=== PATIENT | male | born 1950 | race Caucasian/White ===

== ENCOUNTER → 2017-08-16 | Outpatient (CLI) | payer OTHER ==
[~2017-08-16] MED LIST: ACET500T68 PO; AMLO5TAB2 PO; ASPI-482 PO; DIPH25CA58 PO; DOXY25TA42 PO; METH4TAB7 PO; NAPR500T4 PO; SIMV20TA3 PO; TRAM50TA PO
--- NOTE | 2017-08-16 12:11 | CARD ---
APPROVED REPORT EXAM: Two-dimensional and M-mode echocardiogram with Doppler and color Doppler. Other Information Quality : Fair INDICATION Dyspnea Cardiac Disease: CAD Chest Pain 2D DIMENSIONS RVDd2.4 (2.9-3.5cm)Left Atrium(2D)3.9 (1.6-4.0cm) IVSd1.0 (0.7-1.1cm)Aortic Root(2D)3.4 (2.0-3.7cm) LVDd5.6 (3.9-5.9cm)LVOT Diameter2.2 (1.8-2.4cm) PWd1.2 (0.7-1.1cm)LVDs3.3 (2.5-4.0cm) FS (%) 30.0 %SV108.7 ml LVEF(%)60.0 (>50%) Aortic Valve AoV Peak Andre.135.6cm/sAoV VTI23.8cm AO Peak GR.7.4mmHgLVOT Peak Andre.124.3cm/s AO Mean GR.4mmHgAVA (VMAX)3.45cm2 STEVIE (VTI)4.65ya5KX P 1/2 Nqzr070jh Mitral Valve MV E Motpgdcz28.3cm/sMV DECEL OLGE404gw MV A Wgjzjtza397.3cm/sE/A Ratio0.8 Tricuspid Valve TR P. Coqnzrny752ba/sRAP JOLWAIMC9zsOf TR Peak Gr.94ezGeGHDB27ejFa Pulmonary Vein S1 Zgpdcacm43.8cm/sD2 Qyswqmwm70.2cm/s LEFT VENTRICLE The left ventricle is normal size. There is mild asymmetric posterior wall hypertrophy. The left vent ricular systolic function is normal and the ejection fraction is within normal range. The Ejection Fr action is 55-60%. There is normal LV segmental wall motion. Transmitral Doppler flow pattern is Grade I-abnormal relaxation pattern. RIGHT VENTRICLE The right ventricle is normal size. The right ventricular systolic function is normal. ATRIA The left atrium size is normal. The right atrium size is normal. The interatrial septum is intact wit h no evidence for an atrial septal defect or patent foramen ovale as noted on 2-D or Doppler imaging. AORTIC VALVE The aortic valve is calcified but opens well. Doppler and Color Flow revealed mild aortic regurgitati on. There is no significant aortic valvular stenosis. MITRAL VALVE The mitral valve is calcified but opens well. There is no evidence of mitral valve prolapse. There is no mitral valve stenosis. Doppler and Color Flow revealed trace mitral valve regurgitation. TRICUSPID VALVE The tricuspid valve is normal in structure and function. Doppler and Color Flow revealed trace tricus pid regurgitation. The PA pressure was estimated at 30 mmHg. There is no tricuspid valve stenosis. PULMONIC VALVE The pulmonic valve is not well visualized bue appears to be functioning normally by Doppler interroga tion. Doppler and Color Flow revealed no pulmonic valvular regurgitation. There is no pulmonic valvul ar stenosis. GREAT VESSELS The aortic root is normal in size. The ascending aorta is not well seen. The IVC was not visualized. PERICARDIAL EFFUSION There is no evidence of significant pericardial effusion. Critical Notification Critical Value: No <Conclusion> The left ventricle is normal size. The left ventricular systolic function is normal and the ejection fraction is within normal range. The Ejection Fraction is 55-60%. There is mild asymmetric posterior wall hypertrophy. There is no significant aortic valvular stenosis. Doppler and Color Flow revealed mild aortic regurgitation. Doppler and Color Flow revealed trace mitral valve regurgitation. Doppler and Color Flow revealed trace tricuspid regurgitation. The PA pressure was estimated at 30 mmHg.
[2017-08-17] MEDS: REGADENOSON 0.4 MG/5 ML DISP.SYRIN. IV ONE (09:36)
--- NOTE | 2017-08-17 12:09 | RAD ---
APPROVED REPORT Test Type: Pharmacological Stress Nurse/Tech: SUKHI Castaneda Test Indications: chest pain Cardiac History: cardiomyopathy, valve, HTN Medications: See EMR Medical History: sleep apnea, See EMR Resting ECG: SR Resting Heart Rate: 70 bpm Resting Blood Pressure: 126/77mmHg Pretest Chest Pain: No chest pain Nurse/Tech Notes S1,S2, Lungs CTA, denies CP or SOA Consent: The procedure was explained to the patient in lay terms. Informed consent was witnessed. Steven eout was entered into [id number]. History and Stress Test performed by SUKHI Castaneda Pharm. Details Pharmacologic stress testing was performed using 0.4mg per 5ml of regadenoson given intravenously ove r 7-10 seconds. Stress Symptoms No chest pain or symptoms. POST EXERCISE Reason for Termination: Infusion complete Max HR: 103 bpm Max Blood Pressure: 158/78mmHg Blood Pressure response to exercise: Normal blood pressure response during stress. Heart Rate response to exercise: WNL Chest Pain: No. Arrhythmia: No. ST Change: No. INTERPRETATION Stress EKG Conclusion: Baseline EKG showed sinus rhythm. No ischemic changes at peak stress. No arr hythmias. Imaging Protocol IMAGE PROTOCOL: Rest Tc-99m/stress Tc-99m 2 days Rest: Stress: Viability: Radiopharm.Tc99m HttavbvprRm13g Sestamibi Dose31.3mCi 34.1mCi Duration 12min. 12min. Img Date 08/17/2017 08/17/2017 Inj-Img Aqcc62nkg. 60min. Rest Admin Site:IV - Right WristAdministrator:INDER Ling Stress Admin Site: IV - Right WristAdministrator: Dina Limon, RT (R)(N) STRESS DATA End Diast. Vol.109.0mlAv. Heart Rate68.0bpm End Syst. Vol.35.0mlCO Index BSA0.0L/min Myocardial Zyqv948.0gEject. Xbzswhcf35.0% Stress Rates Pk. Fill Rate2.56EDV/secLVtime Pk. Fill 195.90msec Pk. Empty Rate3.96ESV/secLVtime Pk. Epbji835.74msec 11/17 Pk. Fill0.95EDV/sec Stress Scores Regional WT0.00Summed WT5.00 Regional WM0.00Summed WM0.00 Study quality was good. Left Ventricular size was Normal at Rest and Stress. Lung uptake was Normal. Left Ventricular ejection fraction is 68%. The rest and stress images show normal perfusion, normal contraction and thickening. LV Perf. Quant 17 Seg. SSS6.00 17 Seg. SRS6.00 17 Seg. SDS1.00 Stress Defect Extent (% LAD)0.00Rest Defect Extent (% LAD)0.00Rev. Defect Extent (% LAD)0.00 Stress Defect Extent (% LCX) 52.50Rest Defect Extent (% LCX)27.50Rev. Defect Extent (% LCX)0.00 Stress Defect Extent (% RCA)0.00Rest Defect Extent (% RCA)0.00Rev. Defect Extent (% RCA)0.00 Stress Defect Extent (% NELLY)11.70Rest Defect Extent (% NELLY)7.60Rev. Defect Extent (% NELLY)0.00 Conclusion 1. Regadenoson cardioisotope stress test did not show any evidence of ischemia or infarct. 2. Normal left ventricular systolic function with ejection fraction calculated at 68%. 3. Low risk for cardiac events.
== END | disposition home or self-care (01) ==
LOC: NM 09:09
PROVIDERS: ATTEND Internal Medicine Cardiovascular Disease
DX: I08.2 Rheumatic disorders of both aortic and tricuspid valves (principal); I25.10 Atherosclerotic heart disease of native coronary artery without angina pectoris; J45.909 Unspecified asthma, uncomplicated; I10 Essential (primary) hypertension; G47.30 Sleep apnea, unspecified; I31.3 Pericardial effusion (noninflammatory); Z79.01 Long term (current) use of anticoagulants; I49.5 Sick sinus syndrome
CPT/HCPCS: 78452; 93306; 96374; 96375; A9500; 93017; 96376; J2785

== ENCOUNTER → 2017-12-02 | Day surgery (SDC) | payer OTHER ==
[~2017-12-02] MED LIST changes: -ACET500T68 PO; -AMLO5TAB2 PO; -ASPI-482 PO; -DIPH25CA58 PO; -DOXY25TA42 PO; +HYDROmorphone 2 MG/ML VIAL IV; +LIDOCAINE 1% PF 2 ML VIAL. ID; +LIDOCAINE 2% PF Vial for OR 5 ML VIAL.; -METH4TAB7 PO; +MORPHINE SULFATE 2 MG/ML DISP.SYRIN. IV; -NAPR500T4 PO; +ONDANSETRON PF 4 MG/2 ML VIAL. IV; +PROCHLORPERAZINE 10 MG/2 ML VIAL. IV; +PROPOFOL 40 ML IV; -SIMV20TA3 PO; -TRAM50TA PO; +fentaNYL PF VIAL 100 MCG/2 ML VIAL IV
[2017-12-02] MEDS: IV RINGERS,LACTATED 1000ML 1,000 ML IV (10:35)
== END | disposition home or self-care (01) ==
LOC: ENDOS 10:01
DX: Z12.11 Encounter for screening for malignant neoplasm of colon (principal); K57.30 Diverticulosis of large intestine without perforation or abscess without bleeding; K64.0 First degree hemorrhoids; K29.70 Gastritis, unspecified, without bleeding; K21.0 Gastro-esophageal reflux disease with esophagitis
CPT/HCPCS: 43239; 88305; 88342; J2704

== ENCOUNTER → 2017-12-22 | Outpatient (CLI) | payer OTHER | END | disposition home or self-care (01) | LOC: KCIC 10:40 | DX: R91.8 Other nonspecific abnormal finding of lung field (principal); I51.7 Cardiomegaly | CPT/HCPCS: 71046 ==

== ENCOUNTER → 2018-01-12 | Outpatient (CLI) | payer OTHER ==
[2018-01-12] MEDS: IOHEXOL 240 MG/ML 50ML VIAL. PO (09:15)
[2018-01-12] MEDS: IOHEXOL 300 MG/ML 100ML VIAL. IV (09:47)
[2018-01-12 10:25] LABS: ISTAT CREATININE 0.8 mg/dL (0.7-1.3)
== END | disposition home or self-care (01) ==
LOC: KCIC CT 08:34
DX: K57.30 Diverticulosis of large intestine without perforation or abscess without bleeding (principal); K42.9 Umbilical hernia without obstruction or gangrene; N28.1 Cyst of kidney, acquired; K76.9 Liver disease, unspecified; M16.11 Unilateral primary osteoarthritis, right hip; M41.86 Other forms of scoliosis, lumbar region; I25.10 Atherosclerotic heart disease of native coronary artery without angina pectoris; J98.11 Atelectasis; Z98.890 Other specified postprocedural states
CPT/HCPCS: 74177; 82565; Q9966; Q9967

== ENCOUNTER → 2018-09-05 | Outpatient (CLI) | payer OTHER ==
[2017-12-02 11:27] VITALS: BP 124/55
[~2018-09-05] MED LIST changes: +ACET500T68 PO; +AMLO5TAB7 PO; +ASPI-482 PO; +DIPH25CA58 PO; +DOXY25TA42 PO; +FURO20TA3 PO; -HYDROmorphone 2 MG/ML VIAL IV; -LIDOCAINE 1% PF 2 ML VIAL. ID; -LIDOCAINE 2% PF Vial for OR 5 ML VIAL.; +METH4TAB7 PO; -MORPHINE SULFATE 2 MG/ML DISP.SYRIN. IV; +NAPR-514 PO; -ONDANSETRON PF 4 MG/2 ML VIAL. IV; +POTA10TA12 PO; -PROCHLORPERAZINE 10 MG/2 ML VIAL. IV; -PROPOFOL 40 ML IV; +RIVA10TA PO; +SIMV20TA3 PO; +TRAM50TA PO; -fentaNYL PF VIAL 100 MCG/2 ML VIAL IV
--- NOTE | 2018-09-05 15:31 | RAD ---
PA and lateral chest x-ray compared to similar examination dated December 22, 2017 for joint rehabilitation, preop, history of hypertension, total hip surgery. FINDINGS: There is redemonstration of marked elevation of the left hemidiaphragm. Lungs are clear. Heart size within normal limits. No significant soft tissue or osseous abnormality is are seen. IMPRESSION: 1. Marked elevation of left hemidiaphragm, stable. Electronically signed by: Jose Munoz MD (09/05/2018 3:27 PM) [facility]
== END | disposition home or self-care (01) ==
LOC: SURGPAT 13:44
PROVIDERS: ATTEND Orthopaedic Surgery
DX: Z01.818 Encounter for other preprocedural examination (principal); M16.11 Unilateral primary osteoarthritis, right hip; I10 Essential (primary) hypertension; J98.6 Disorders of diaphragm
CPT/HCPCS: 71046; 87641

== ENCOUNTER → 2018-09-13 | Outpatient (CLI) | payer OTHER ==
[2017-12-02 11:27] VITALS: BP 124/55
--- NOTE | 2018-09-13 12:27 | CARD ---
MR#: [id number] Date of Study: 09/13/2018 Ordering Physician: MAURILIO RAMIREZ, Referring Physician: MAURILIO RAMIREZ, Tech: Felicita Rosa APPROVED REPORT EXAM: Two-dimensional and M-mode echocardiogram with Doppler and color Doppler. Other Information Quality : FairHR: 74bpm Rhythm : NSR INDICATION Pre-Op RISK FACTORS Hypertension 2D DIMENSIONS Left Atrium(2D)3.0 (1.6-4.0cm)IVSd1.1 (0.7-1.1cm) Aortic Root(2D)4.0 (2.0-3.7cm)LVDd5.5 (3.9-5.9cm) LVOT Diameter2.6 (1.8-2.4cm)PWd1.2 (0.7-1.1cm) LVDs2.7 (2.5-4.0cm)FS (%) 52.0 % SV123.1 ml Aortic Valve AoV Peak Andre.110.0cm/sAoV VTI25.4cm AO Peak GR.4.8mmHgLVOT Peak Andre.88.0cm/s LVOT VTI 22.45cmAO Mean GR.3mmHg STEVIE (VMAX)3.67bk8EVQ (VTI)4.71cm2 AI P 1/2 Xbej894mt Mitral Valve MV E Nuwdwwuq97.7cm/sMV DECEL CCGW735cw MV A Sbbxfkhr30.2cm/sMV ISD78ry E/A Ratio0.7MVA (PHT)2.59cm2 TDI E/Lateral E'4.9E/Medial E'8.2 Pulmonary Valve PV Peak Jyvbrbnq082.9cm/sPV Peak Grad.7mmHg Tricuspid Valve TR P. Soxtsqhy741cq/sRAP TGXJOTYX5nhUa TR Peak Gr.54prGfKEBT63qtJb Pulmonary Vein S1 Krepzhdo11.8cm/sD2 Xpmrexel73.6cm/s PVa xiqanhrk749qmad LEFT VENTRICLE The left ventricle is normal size. There is mild concentric left ventricular hypertrophy. The left ve ntricular systolic function is normal. The ejection fraction is 60-65%. There is normal LV segmental wall motion. Transmitral Doppler flow pattern is Grade I-abnormal relaxation pattern. RIGHT VENTRICLE The right ventricle is normal size. There is normal right ventricular wall thickness. The right ventr icular systolic function is normal. ATRIA The left atrium size is normal. The right atrium size is normal. The interatrial septum is intact wit h no evidence for an atrial septal defect or patent foramen ovale as noted on 2-D or Doppler imaging. AORTIC VALVE The aortic valve is not well visualized. Doppler and Color Flow revealed mild aortic regurgitation. T here is no significant aortic valvular stenosis. Calculated aortic valve area is 4 cm2 with maximum p ressure gradient of 5 mmHg and mean pressure gradient of 3 mmHg. MITRAL VALVE The mitral valve is normal in structure and function. There is no mitral valve stenosis. Doppler and Color Flow revealed no mitral valve regurgitation noted. TRICUSPID VALVE The tricuspid valve is not well visualized. Doppler and Color Flow revealed trace tricuspid regurgita tion. PULMONIC VALVE The pulmonic valve is not well visualized. Doppler and Color Flow revealed trace pulmonic valvular re gurgitation. GREAT VESSELS The aortic root is mildly enlarged. Normal pulmonary venous flow (Doppler). The IVC was not visualize d. PERICARDIAL EFFUSION There is no evidence of significant pericardial effusion. Critical Notification Critical Value: No <Conclusion> The left ventricle is normal size. The left ventricular systolic function is normal. The ejection fraction is 60-65%. There is mild concentric left ventricular hypertrophy. There is no significant aortic valvular stenosis. Calculated aortic valve area is 4 cm2 with maximum pressure gradient of 5 mmHg and mean pressure grad ient of 3 mmHg. Doppler and Color Flow revealed mild aortic regurgitation. Doppler and Color Flow revealed no mitral valve regurgitation noted. Doppler and Color Flow revealed trace tricuspid regurgitation. Signed by : Maurilio Ramirez MD Electronically Approved : 09/13/2018 12:26:14
== END | disposition home or self-care (01) ==
LOC: ECHO 08:55
PROVIDERS: ATTEND Internal Medicine Cardiovascular Disease
DX: I25.10 Atherosclerotic heart disease of native coronary artery without angina pectoris (principal); I10 Essential (primary) hypertension; I35.1 Nonrheumatic aortic (valve) insufficiency
CPT/HCPCS: 93306

== ENCOUNTER 2018-09-20 06:52 | Inpatient (IN) | payer OTHER ==
[2018-09-20] VITALS (7 sets, daily range): BP systolic 120–154; BP diastolic 57–80
[~2018-09-20] VITALS: Ht 170.2 cm; Wt 117.0 kg
[~2018-09-20 06:52] MED LIST changes: +HYDROcodone/APAP 7.5/325MG 1 TAB TABLET PO PRN; +MELOXICAM 7.5 MG TABLET PO PRN; +MORPHINE SULFATE 5 MG, KETOROLAC 30MG VIAL 30 MG, ROPIVacaine 0.5% PF 60 ML, EPINEPHrin... INT ART ONE; -RIVA10TA PO; +VANCOMYCIN 1GM IVPB FOR OMNI 250 ML IV PRN
[2018-09-20] MEDS ORDERED: PROCHLORPERAZINE 10 MG/2 ML VIAL. IV PRN ×2 (07:00→15:00)
[2018-09-20] MEDS ORDERED: MORPHINE SULFATE 2 MG/ML VIAL. IV PRN (07:00)
[2018-09-20] MEDS ORDERED: fentaNYL PF VIAL 100 MCG/2 ML VIAL IV PRN ×3 (07:00→15:00)
[2018-09-20] MEDS ORDERED: LIDOCAINE 1% PF 2 ML VIAL. ID PRN (07:00)
[2018-09-20] MEDS ORDERED: ONDANSETRON PF 4 MG/2 ML VIAL. IV PRN (07:00)
[2018-09-20] MEDS: IV RINGERS,LACTATED 1000ML 1,000 ML IV SCH ×2 (07:38→12:49)
[2018-09-20 08:07] LABS: PROTHROMBIN TIME PATIENT 12.8 SEC (11.7-14.0)
--- NOTE | 2018-09-20 09:31 | HP ---
ADMIT DATE: 09/20/2018 CHIEF COMPLAINT: Right hip pain. HISTORY OF PRESENT ILLNESS: The patient has about a 6-month history progressively worsening right hip pain, now severely affecting his activities of daily living. Occasionally, gets catching type sensation, accompanied by a sharp pain and giving way as well. PAST MEDICAL HISTORY: Significant for history of DVT following a previous surgery at [facility]. Some asthma, scoliosis, insomnia, postop DVTs, spondylolisthesis in his back, esophageal reflux, hyperlipidemia. PAST SURGICAL HISTORY: Significant for bilateral total knees, left total hip arthroplasty and previous back surgery. MEDICATIONS: List is reviewed.. ALLERGIES: He lists MORPHINE. He says it is ineffective, but not a true allergy. REVIEW OF SYSTEMS: Denies any recent medical issues, chest pain, shortness of breath, any fever, chills, radiating pain in the extremities or other constitutional symptoms. He does indicate that after being off naproxen, his right hip pain has been much more severe over the past several days. PHYSICAL EXAMINATION: VITAL SIGNS: Per his admission sheet. HEENT: Atraumatic, normocephalic. HEART: Regular rate and rhythm. LUNGS: Clear to auscultation bilaterally. ABDOMEN: Benign. EXTREMITIES: Examination of the right hip reveals decreased range of motion in all planes, with pain on extremes of range of motion. Negative straight leg raise. Leg lengths are relatively equal. He has a well-healed incision from previous total hip on the contralateral side. Bilateral total knees, overall intact motor function, distal pulses, sensation, reflexes, skin in both lower extremities throughout. IMAGING: X-rays show severe degenerative change on the right hip. IMPRESSION: Right hip pain and osteoarthritis, right hip. TREATMENT PLAN: I previously discussed with him the treatment alternatives including activity modification, injection. He had been through the previous total hip arthroplasty, was pleased with the results. Obviously concerned with what he felt was a premature discharge from the hospital and development of deep venous thrombosis postoperatively. I had gone over with him the risks, benefits, postoperative course including the possibility of infection, instability, premature wear or loosening, leg length discrepancy, medical or other anesthetic complications including blood clots among others. I went over a strategy for management of DVT prophylaxis. He agrees to proceed with surgical evaluation and treatment and will undergo [facility] admission to follow. MOHIT LOPEZ MD DR: CRUZITO/frances JOB#: [id number] / [id number]
[2018-09-20] MEDS ORDERED: ROCURONIUM 50 MG/5 ML VIAL. ONE (09:42)
[2018-09-20] MEDS ORDERED: fentaNYL PF VIAL 100 MCG/2 ML VIAL ONE ×2 (09:43→12:22)
[2018-09-20] MEDS ORDERED: MIDAZOLAM HCL/PF 2 MG/2 ML VIAL. ONE (09:43)
[2018-09-20] MEDS ORDERED: ePHEDrine PF IN SALINE 50 MG/5 ML DISP.SYRIN IV ONE (10:17)
[2018-09-20] MEDS ORDERED: ONDANSETRON PF 4 MG/2 ML VIAL. ONE (11:19)
[2018-09-20] MEDS ORDERED: DEXAMETHASONE SOD PHOS 20 MG/5 ML VIAL. ONE (11:19)
[2018-09-20] MEDS ORDERED: PROPOFOL 20 ML IV ONE (11:19)
[2018-09-20] MEDS ORDERED: FAMOTIDINE 20 MG/2 ML VIAL ONE (11:19)
[2018-09-20] MEDS ORDERED: LIDOCAINE 2% PF Vial for OR 5 ML VIAL. ONE (11:19)
[2018-09-20] MEDS ORDERED: SEVOFLURANE > 120 MINUTES. IH ONE (11:56)
[2018-09-20] MEDS ORDERED: NEOSTIGMINE METHYLSULFATE 5 MG/5 ML SYRINGE. ONE (12:00)
[2018-09-20] MEDS ORDERED: GLYCOPYRROLATE 1 MG/5 ML VIAL. ONE (12:00)
[2018-09-20] MEDS: fentaNYL PF VIAL 100 MCG/2 ML VIAL IV PRN ×2 (12:35→12:49)
[2018-09-20] MEDS: HYDROmorphone 2 MG/ML VIAL IV PRN ×4 (12:59→14:48)
[2018-09-20] MEDS ORDERED: ACETAMINOPHEN 325 MG TABLET. PO PRN (15:00)
[2018-09-20] MEDS ORDERED: HYDROcodone/APAP 10/325 1 TAB TABLET PO PRN (15:00)
[2018-09-20] MEDS ORDERED: oxyCODONE/APAP 5/325 1 TAB TABLET PO PRN (15:00)
[2018-09-20] MEDS ORDERED: DEXTROSE 50% 25 GM / 50ML DISP.SYRIN. IV PRN (15:00)
[2018-09-20] MEDS ORDERED: 0.9 % SODIUM CHLORIDE 10 ML DISP.SYRIN. IV PRN (15:00)
[2018-09-20] MEDS ORDERED: oxyCODONE/APAP 7.5/325 1 TAB TABLET PO PRN (15:00)
[2018-09-20] MEDS ORDERED: traMADol 50 MG TABLET PO PRN ×2 (15:00)
[2018-09-20] MEDS ORDERED: CALCIUM CARBONATE 500 MG TAB.CHEW PO PRN (15:00)
--- NOTE | 2018-09-20 15:08 | RAD ---
AP view of the pelvis and AP view of the right hip Clinical indications: Postoperative study. FINDINGS: Total right hip arthroplasty is evident and is well aligned in this AP projection. The femoral stem is located centrally within the intramedullary canal of the proximal right femur. No acute fracture or osteolytic process is seen. IMPRESSION: Total right hip arthroplasty. Electronically signed by: Geo Greer MD (09/20/2018 3:04 PM) [facility] [place]
[2018-09-20] MEDS: FERROUS SULFATE 325 MG TABLET. PO SCH (16:17)
[2018-09-20] MEDS: HYDROcodone/APAP 7.5/325MG 1 TAB TABLET PO PRN ×2 (16:17→21:04)
[2018-09-20] MEDS: SENNOSIDES/DOCUSATE 8.6/50MG TABLET. PO SCH (16:18)
[2018-09-20] MEDS: amLODIPine BESYLATE 5 MG TABLET PO SCH (16:18)
[2018-09-20] MEDS: MULTIVITAMIN with MINERAL TABLET. PO SCH (16:18)
[2018-09-20] MEDS: IV DEXTROSE 5 %-0.45 % NACL 1,000 ML IV SCH (17:10)
[2018-09-20] MEDS: KETOROLAC 30MG VIAL 30 MG, BUPIVACAINE MPF 0.25% 20 ML, EPINEPHrine 0.5 MG in TOTAL VOL... INT ART SCH (17:35)
--- NOTE | 2018-09-20 20:21 | PDOC4 ---
Operative Note Operative Note Date of surgery: 09/20/2018 Preoperative diagnosis: Degenerative joint disease right hip Postoperative diagnosis: Same Operative procedure: Right total hip arthroplasty Surgeon: Ryan Assist: Michaela Anesthesia: Gen. Estimated blood loss: 200 mL Complications: None Specimens: Femoral head to pathology Drains: Hemovac drain and intra-articular pain catheter right hip Operative indications: Aakash is a 68-year-old male having severe limiting right hip pain unresponsive to nonoperative management as detailed in my clinic notes. We had previously discussed additional nonoperative management as well as possibility of total hip arthroplasty which she had gone through and is familiar with the process from a previous surgery on the left hip. I discussed with him the possibility of leg length discrepancy infection nerve or blood vessel damage instability premature wear or loosening medical or other anesthetic complications among others and his increased risk for DVT given his previous history. All his questions were answered he wishes to proceed with surgical evaluation and treatment which will occur today with joint center admission to follow. Operative text: Patient was identified procedure verified patient placed in the supine position on the operating table. After adequate amounts of general anesthesia were administered he was placed decubitus right side up using the Stulberg hip positioner all bony prominences were well-padded and the right hip was prepped and draped in standard sterile fashion. After timeout was performed patient procedure identified and verified a posterior approach was carried out to the hip as follows. Curvilinear incision was made centered over the greater trochanter dissection carried out to the iliotibial band which was divided in line with the fibers and the gluteus fibers were likewise split along their length. Charnley retractor was placed external rotators were divided from their insertion and hip capsule was split in a T fashion. Hip was dislocated and femoral neck cut was made using the cutting guide. Acetabulum was then exposed labrum and contents the fovea were excised femoral head was sized at a size 51. Reaming was carried out originally with a size 50 and reaming carried out to the inner table of the pelvis. Successive size reaming carried out to a size 57 which resulted in good bleeding bone all around and an intact acetabular rim. A size 58 hemispherical are 3 coated hemispherical cluster hole shell was impacted into place with proper version and inclination and fixated superiorly with a single 35 mm screw. Excellent fixation was noted and a size 40 mm inner diameter standard liner was impacted into place the femur was then prepared with drilling and broaching up to a size 13 Synergy stem. Trialing was then carried out at this point in the optimum leg length and stability was carried out with a high offset implant and +0 mm neck length. Trial components were then removed thorough irrigation carried out normal saline solution and a size 13 high offset synergy porous coated femoral component was impacted in place re- trialing carried out again with a +0 mm which resulted in excellent stability full range of motion and temple of leg length a 40 mm Oxinium modular femoral head with a +0 head sleeve was then impacted to engage the taper and was reduced into the joint with equivalent stability leg length and offset achieved. Hip capsule was repaired with #5 Ethibond and external rotators were reattached transosseously with #5 Ethibond as well Hemovac drain and intra- articular catheter were placed pain catheter mixture injected throughout the joint capsule fascia was closed with #1 PDS strata fix suture subcutaneous closure with buried Vicryl suture skin closure with carly janet dressing was applied patient was returned to recovery room in stable condition having tolerated procedure well. Ayden Jennings nurse practitioner is present for the procedure and assisted in prepping draping retraction positioning and skin closure MOHIT LOPEZ MD Sep 20, 2018 20:21
[2018-09-20] MEDS: CELECOXIB 100 MG CAPSULE. PO SCH (21:03)
[2018-09-20] MEDS: SIMVASTATIN 20 MG TABLET PO SCH (21:03)
[2018-09-20] MEDS ORDERED: VANCOMYCIN 1 GM in IV DEXTROSE 5% 250 ML IV ONE (22:00)
[2018-09-21] MEDS: IV DEXTROSE 5 %-0.45 % NACL 1,000 ML IV SCH (00:50)
[2018-09-21] MEDS: HYDROcodone/APAP 7.5/325MG 1 TAB TABLET PO PRN ×5 (01:16→20:36)
[2018-09-21 03:05] VITALS: BP 113/55
[2018-09-21] MEDS: KETOROLAC 30MG VIAL 30 MG, BUPIVACAINE MPF 0.25% 20 ML, EPINEPHrine 0.5 MG in TOTAL VOL... INT ART SCH (06:00)
[2018-09-21] MEDS ORDERED: MAGNESIUM HYDROXIDE 2,400 MG/30 ML ORAL.SUSP. PO PRN (06:00)
[2018-09-21 06:34] VITALS: BP 116/68
--- NOTE | 2018-09-21 07:28 | PDOC ---
TANISHA HARVEY MAINTENANCE CHIEF 09/21/18 0728: ORTHO PROGRESS NOTES Subjective Patient states mildly painful at the hip but doing well and getting up to restroom without difficulty. Post-op Day: 1 Procedure RTHA Vitals Vital Signs Date Time Temp Pulse Resp B/P (MAP) Pulse Ox O2 Delivery O2 Flow Rate FiO2 09/21/18 06:34 98.0 69 16 116/68 (84) 94 Nasal Cannula 2.0 98.0 Labs Laboratory Tests Test 09/20/18 07:30 Prothrombin Time 12.8 SEC (11.7-14.0) Prothromb Time International Ratio 1.0 (0.8-1.1) Activated Partial Thromboplast Time 30 SEC (24-38) Laboratory Tests Test 09/20/18 07:30 Prothrombin Time 12.8 SEC (11.7-14.0) Prothromb Time International Ratio 1.0 (0.8-1.1) Activated Partial Thromboplast Time 30 SEC (24-38) Assessment and Plan N/V intact distally dressing dry and intact calf soft and nontender PT per protocol. ENEDINA MOREAU II, MD 09/22/18 0838: ORTHO PROGRESS NOTES Assessment and Plan Dr. Davis's patient, my name was assigned to this mistakenly TANISHA HARVEY APRN Sep 21, 2018 07:28 ENEDINA MOREAU II, MD Sep 22, 2018 08:38
[2018-09-21 08:05] VITALS: BP 117/61
[2018-09-21] MEDS: ASPIRIN ENTERIC COATED 81 MG TABLET.DR. PO SCH (08:07)
[2018-09-21] MEDS: SENNOSIDES/DOCUSATE 8.6/50MG TABLET. PO SCH (08:07)
[2018-09-21] MEDS: MULTIVITAMIN with MINERAL TABLET. PO SCH (08:07)
[2018-09-21] MEDS: CELECOXIB 100 MG CAPSULE. PO SCH ×2 (08:07→20:35)
[2018-09-21] MEDS: FERROUS SULFATE 325 MG TABLET. PO SCH ×2 (08:07→16:34)
[2018-09-21] MEDS: FUROSEMIDE 20 MG TABLET PO SCH (08:11)
[2018-09-21] MEDS: amLODIPine BESYLATE 5 MG TABLET PO SCH (08:14)
[2018-09-21] MEDS: ANTI-COAG MONITOR BY PHARMACY. MC PRN (11:13)
[2018-09-21] MEDS ORDERED: BISACODYL 10 MG SUPP.RECT. PR PRN (16:00)
[2018-09-21] MEDS: RIVAROXABAN 10 MG TABLET. PO SCH (16:35)
--- NOTE | 2018-09-21 17:22 | PDOC ---
PROGRESS NOTES Subjective Subjective Problems overnight: Overall got up and around fairly well feels that the hip is better than before surgery he did note that the pain catheter was nonfunctional and apparently could not be used had a be removed Objective Vital Signs Vital Signs Date Time Temp Pulse Resp B/P (MAP) Pulse Ox O2 Delivery O2 Flow Rate FiO2 09/21/18 16:35 Room Air 09/21/18 08:14 71 117/61 09/21/18 06:34 98.0 16 94 2.0 98.0 Physical Exam Dressing clean dry intact no redness or erythema leg lengths are equal distal neurovascular status intact good early range of motion Labs Laboratory Tests Test 09/20/18 07:30 Prothrombin Time 12.8 SEC (11.7-14.0) Prothromb Time International Ratio 1.0 (0.8-1.1) Activated Partial Thromboplast Time 30 SEC (24-38) Imaging Postop x-rays show excellent placement of the total hip arthroplasty with leg lengths and offsets matched very nicely Assessment Assessment POD# [1], S/P [right total hip arthroplasty] Plan Plan of Care Weightbearing as tolerated standard total hip precautions Xarelto 10 mg daily anticoagulation MOHIT LOPEZ MD Sep 21, 2018 17:22
[2018-09-21 18:15] VITALS: BP 116/68
[2018-09-21 18:29] VITALS: BP 119/63
[2018-09-21] MEDS: ZOLPIDEM 5 MG TABLET. PO PRN (20:35)
[2018-09-21] MEDS: SIMVASTATIN 20 MG TABLET PO SCH (20:35)
[2018-09-22 04:53] LABS: HEMATOCRIT 30.5 % (39.0-53.0); HEMOGLOBIN 10.6 g/dL (13.0-17.5)
[2018-09-22 06:29] VITALS: BP 110/59
[2018-09-22] MEDS: MULTIVITAMIN with MINERAL TABLET. PO SCH (08:41)
[2018-09-22] MEDS: HYDROcodone/APAP 7.5/325MG 1 TAB TABLET PO PRN ×4 (08:41→21:35)
[2018-09-22] MEDS: SENNOSIDES/DOCUSATE 8.6/50MG TABLET. PO SCH (08:41)
[2018-09-22] MEDS: ASPIRIN ENTERIC COATED 81 MG TABLET.DR. PO SCH (08:41)
[2018-09-22] MEDS: CELECOXIB 100 MG CAPSULE. PO SCH ×2 (08:41→21:34)
[2018-09-22] MEDS: FERROUS SULFATE 325 MG TABLET. PO SCH ×2 (08:41→16:51)
[2018-09-22 08:42] VITALS: BP 100/65
[2018-09-22] MEDS: amLODIPine BESYLATE 5 MG TABLET PO SCH (09:00)
--- NOTE | 2018-09-22 14:25 | PDOC ---
PROGRESS NOTES Subjective Subjective Problems overnight:Sore today getting around ok with pt Objective Vital Signs Vital Signs Date Time Temp Pulse Resp B/P (MAP) Pulse Ox O2 Delivery O2 Flow Rate FiO2 09/22/18 12:38 Room Air 09/22/18 08:42 90 16 100/65 (77) 09/22/18 06:29 98.5 88 98.5 09/21/18 20:00 2.0 Physical Exam dressing intact, neuro intact, ll= Labs Laboratory Tests Test 09/22/18 04:30 Hemoglobin 10.6 g/dL (13.0-17.5) Hematocrit 30.5 % (39.0-53.0) Mean Corpuscular Hemoglobin Concent 35 g/dL (31-37) Laboratory Tests Test 09/22/18 04:30 Hemoglobin 10.6 g/dL (13.0-17.5) Hematocrit 30.5 % (39.0-53.0) Mean Corpuscular Hemoglobin Concent 35 g/dL (31-37) Assessment Assessment POD# [2], S/P [total hip] Plan Plan of Care continue pt hh on d/c MOHIT Quevedo MD Sep 22, 2018 14:25
[2018-09-22] MEDS ORDERED: BISACODYL 5 MG TABLET.DR. PO PRN (14:30)
--- NOTE | 2018-09-22 15:08 | PATHOLOGY ---
[facility] Accession Number: [id number] . 01 Material submitted: . RIGHT HIP BONE . 01 Clinical history: . Right hip osteoarthritis . 02 Diagnosis: Femoral head and portion of femoral neck, right hip arthroplasty: - Advanced degenerative arthritis with focal subarticular cystic degeneration. (JPM:[facility] 09/22/2018) QTP/09/22/2018 . 02 Electronically signed: . Chaim Jara MD, Pathologist NPI- [id number] . 01 Gross description: . The specimen is received in formalin, labeled "Aakash Owens, right hip bone" and consists of a femoral head measuring 5.0 x 5.0 x 4.2 cm with the neck measuring 1.5 x 4.1 cm. The articular surface is urban-brown and smooth with eburnation measuring up to 2.0 cm. Sectioning reveals pink-yellow cut surfaces. A architectural representative section is submitted in A1 following decalcification.(SDY; 09/21/2018) SYU/SYU . 02 Pathologist provided ICD-10: M16.11 . 02 CPT . 719998, 942000 Specimen Comment: A courtesy copy of this report has been sent to Specimen Comment: [phone], . Specimen Comment: Report sent to / DR UGO DAWSON Specimen Comment: A duplicate report has been generated due to demographic updates. Performed at: [address] [facility] [address], [place] [id number] MD Gabe Perez MD Phone: [phone] Performed at: 02 [facility] [address], [place] [id number] MD Chaim Jara MD Phone: [phone]
[2018-09-22 15:30] VITALS: BP 108/63
[2018-09-22] MEDS: FUROSEMIDE 20 MG TABLET PO SCH (15:30)
[2018-09-22] MEDS: RIVAROXABAN 10 MG TABLET. PO SCH (16:51)
[2018-09-22 17:52] VITALS: BP 125/62
[2018-09-22] MEDS: SIMVASTATIN 20 MG TABLET PO SCH (21:34)
[2018-09-22] MEDS: ZOLPIDEM 5 MG TABLET. PO PRN (21:34)
[2018-09-23 06:32] VITALS: BP 132/78
[2018-09-23 07:39] LABS: HEMATOCRIT 33.6 % (39.0-53.0); HEMOGLOBIN 11.6 g/dL (13.0-17.5)
[2018-09-23] MEDS ORDERED: BISACODYL 10 MG SUPP.RECT. PR ONE (08:00)
[2018-09-23] MEDS: SENNOSIDES/DOCUSATE 8.6/50MG TABLET. PO SCH (08:58)
[2018-09-23] MEDS: FERROUS SULFATE 325 MG TABLET. PO SCH (08:58)
[2018-09-23] MEDS: MULTIVITAMIN with MINERAL TABLET. PO SCH (08:58)
[2018-09-23] MEDS: CELECOXIB 100 MG CAPSULE. PO SCH (08:58)
[2018-09-23] MEDS: ASPIRIN ENTERIC COATED 81 MG TABLET.DR. PO SCH (08:58)
[2018-09-23] MEDS: FUROSEMIDE 20 MG TABLET PO SCH (08:58)
[2018-09-23] MEDS: amLODIPine BESYLATE 5 MG TABLET PO SCH (09:00)
[2018-09-23] MEDS: HYDROcodone/APAP 7.5/325MG 1 TAB TABLET PO PRN ×2 (09:01→12:58)
[2018-09-23 09:03] VITALS: BP 99/66
[2018-09-23] MEDS: ANTI-COAG MONITOR BY PHARMACY. MC PRN (10:34)
[2018-09-23 13:30] VITALS: BP 100/63
[2018-09-23] MEDS ORDERED: RIVA10TA PO (15:26)
[2018-09-23] MEDS: RIVAROXABAN 10 MG TABLET. PO SCH (15:36)
== END 2018-09-23 16:15 | disposition home health service (06) | DRG 470 ==
LOC: OPSVCIP 06:52 → 4 SOUTHEST 14:56
PROVIDERS: ADMIT Orthopaedic Surgery; ATTEND Orthopaedic Surgery
PROC: 0SR906Z Replacement of Right Hip Joint with Oxidized Zirconium on Polyethylene Synthetic Substitute, Open Approach (ICD-10-PCS; principal; 2018-09-20 09:00)
DX: M16.11 Unilateral primary osteoarthritis, right hip (principal); E78.5 Hyperlipidemia, unspecified; Z86.718 Personal history of other venous thrombosis and embolism; M41.9 Scoliosis, unspecified; K21.9 Gastro-esophageal reflux disease without esophagitis; J45.909 Unspecified asthma, uncomplicated; M43.10 Spondylolisthesis, site unspecified; G47.00 Insomnia, unspecified; Z96.643 Presence of artificial hip joint, bilateral; Z88.6 Allergy status to analgesic agent
CPT/HCPCS: 36415; 73501; 85014; 85018; 85610; 85730; 86850; 86900; 86901; 88304; 88311; A7015; C1713; J0171; J1100; J1170; J1885; J2001; J2250; J2270; J2405; J2704; J2710; J2795; J3010; J3370; J3490; J7030; J7120; 97116; 97150; 97530; 97535

== ENCOUNTER → 2020-10-29 | Outpatient (CLI) | payer MEDICARE ==
[~2020-10-29] MED LIST changes: +AMLO-186 PO; -AMLO5TAB7 PO; -HYDROcodone/APAP 7.5/325MG 1 TAB TABLET PO PRN; -MELOXICAM 7.5 MG TABLET PO PRN; -MORPHINE SULFATE 5 MG, KETOROLAC 30MG VIAL 30 MG, ROPIVacaine 0.5% PF 60 ML, EPINEPHrin... INT ART ONE; -POTA10TA12 PO; +POTASSIUM CHLO10 ME1 PO; +RIVA10TA PO; +SIMV20TA18 PO; -SIMV20TA3 PO; -VANCOMYCIN 1GM IVPB FOR OMNI 250 ML IV PRN
--- NOTE | 2020-10-29 16:28 | CARD ---
MR#: [id number] Date of Study: 10/29/2020 Ordering Physician: MAURILIO RAMIREZ, Referring Physician: MAURILIO RAMIREZ, Tech: Kaykay Holder [facility] APPROVED REPORT EXAM: Two-dimensional and M-mode echocardiogram with Doppler and color Doppler. Other Information Quality : Fair INDICATION Dyspnea RISK FACTORS Obesity 2D DIMENSIONS Left Atrium(2D)3.5 (1.6-4.0cm)IVSd1.4 (0.7-1.1cm) Aortic Root(2D)2.8 (2.0-3.7cm)LVDd5.3 (3.9-5.9cm) LVOT Diameter2.2 (1.8-2.4cm)PWd1.4 (0.7-1.1cm) LVDs4.2 (2.5-4.0cm)FS (%) 21.3 % SV59.3 mlLVEF(%)55.0 (>50%) Aortic Valve AoV Peak Andre.110.1cm/sAoV VTI22.5cm AO Peak GR.4.8mmHgLVOT Peak Andre.102.0cm/s AO Mean GR.3mmHgAVA (VMAX)3.38cm2 STEVIE (VTI)3.32au9JV P 1/2 Qbbx708ki Mitral Valve MV E Gvmaygrz58.9cm/sMV DECEL YJZL379mm MV A Jadrlrny420.4cm/sE/A Ratio0.7 Tricuspid Valve TR P. Foymjreo376tb/sRAP TOPUSWYV1fkWd TR Peak Gr.62kwElRIQG14tvEy Pulmonary Vein S1 Dxgdrowx09.6cm/sD2 Xyzoetug97.9cm/s LEFT VENTRICLE The left ventricle is normal size. There is mild concentric left ventricular hypertrophy. The left ve ntricular systolic function is normal and the ejection fraction is within normal range. The Ejection Fraction is 55-60%. There is normal LV segmental wall motion. Transmitral Doppler flow pattern is Gra de I-abnormal relaxation pattern. RIGHT VENTRICLE The right ventricle is normal size. The right ventricular systolic function is normal. ATRIA The left atrium size is normal. The right atrium size is normal. The interatrial septum is intact wit h no evidence for an atrial septal defect or patent foramen ovale as noted on 2-D or Doppler imaging. AORTIC VALVE The aortic valve is calcified but opens well. Doppler and Color Flow revealed eccentric mild aortic r egurgitation. There is no significant aortic valvular stenosis. MITRAL VALVE The mitral valve is calcified but opens well. There is no evidence of mitral valve prolapse. There is no mitral valve stenosis. Doppler and Color Flow revealed no mitral valve regurgitation noted. TRICUSPID VALVE The tricuspid valve is normal in structure and function. Doppler and Color Flow revealed trace tricus pid regurgitation. The PA pressure was estimated at 32 mmHg. There is no tricuspid valve stenosis. PULMONIC VALVE The pulmonic valve is not well visualized. Doppler and Color Flow revealed no pulmonic valvular regur gitation. There is no pulmonic valvular stenosis. GREAT VESSELS The aortic root is normal in size. The ascending aorta is mildly dilated at 3.5 cm. The IVC was not v isualized. PERICARDIAL EFFUSION There is no evidence of significant pericardial effusion. Critical Notification Critical Value: No <Conclusion> The left ventricle is normal size. The left ventricular systolic function is normal and the ejection fraction is within normal range. The Ejection Fraction is 55-60%. There is mild concentric left ventricular hypertrophy. Doppler and Color Flow revealed eccentric mild aortic regurgitation. There is no significant aortic valvular stenosis. Doppler and Color Flow revealed no mitral valve regurgitation noted. Doppler and Color Flow revealed trace tricuspid regurgitation. The PA pressure was estimated at 32 mmHg. The ascending aorta is mildly dilated at 3.5 cm. Signed by : Maurilio Ramirez MD Electronically Approved : 10/29/2020 16:27:34
== END ==
LOC: ECHO 10:34
PROVIDERS: ATTEND Internal Medicine Cardiovascular Disease
DX: I08.0 Rheumatic disorders of both mitral and aortic valves (principal); R06.02 Shortness of breath
CPT/HCPCS: 93306